=== PATIENT | female | born 1990 | race Hispanic/Latino ===

== ENCOUNTER 2018-12-11 19:18 | Emergency (ER) | payer OTHER ==
[2018-12-11 20:14] LABS: Absolute Lymphocytes (CBC) 2.6 K/uL (0.7-4.9); Absolute Monocytes 0.7 K/uL (0.1-1.3); Absolute Neutrophil 4.9 K/uL (1.8-8.0); Basophils % 0.8 % (0-1.3); Eosinophils % 1.1 % (0-4.4); Hematocrit 41.2 % (36.0-45.0); Lymphocytes % 31.4 % (15.3-44.8); Monocytes % 7.9 % (3.3-12.3); RBC Red Blood Cell Count 4.75 M/uL (3.86-4.86)
[2018-12-11 20:39] LABS: ALT/SGPT 40 U/L (12-78); AST/SGOT 26 U/L (15-37); Albumin 3.9 g/dL (3.4-5.0); Alkaline Phosphatase 78 U/L (45-117); BUN Blood Urea Nitrogen 12 mg/dL (7-18); Bicarbonate 28 mmol/L (21-32); Bilirubin Direct < 0.1 mg/dL (0-0.2); Bilirubin Total 0.2 mg/dL (0.2-1.0); Glucose Level 98 mg/dL (74-106); Lipase 145 U/L (73-393); Potassium 3.6 mmol/L (3.5-5.1); Protein, Total 8.2 g/dL (6.4-8.2); Sodium Level 141 mmol/L (136-145)
[2018-12-11 20:43] LABS: Urine Blood TRACE (NEG); Urine Glucose NEGATIVE (NEG); Urine Protein TRACE (NEG); Urine pH 7.5 (5.0-7.0)
[2018-12-11 20:44] LABS: Urine Bacteria 20-50 /HPF (<20); Urine RBC NONE SEEN /HPF (NONE SEEN)
[2018-12-11 20:45] LABS: Urine Culture Reflex Order REFLEXED
--- NOTE | 2018-12-11 23:48 | EDPHYS ---
Physician Documentation [facility] Name: Leigh Rodriguez Age: 28 yrs Sex: Female : 1990 Arrival Date: 12/11/2018 Time: 19:20 Bed 7 Private MD: ED Physician Jose Alexandre HPI: 12/11 23:08 This 28 yrs old Female presents to ER via Ambulatory with complaints of gs Abdominal Pain. 23:08 The patient presents with blood discharge from umbilicus. Onset: The symptoms/episode gs began/occurred acutely. Associated signs and symptoms: Pertinent negatives: nausea and vomiting, fever. The symptoms are described as sharp. Severity of pain: At its worst the pain was moderate in the emergency department the pain is unchanged. The patient has not experienced similar symptoms in the past. 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 - Social history:: Smoking status: Patient/guardian denies using tobacco. - Ebola Screening: : Patient denies travel to an Ebola-affected area in the 21 days before illness onset. ROS: 23:08 All other systems are negative. gs Exam: 23:08 Head/Face: Normocephalic, atraumatic. Eyes: Pupils equal round and reactive to light, gs extra-ocular motions intact. Lids and lashes normal. Conjunctiva and sclera are non-icteric and not injected. Cornea within normal limits. Periorbital areas with no swelling, redness, or edema. ENT: Nares patent. No nasal discharge, no septal abnormalities noted. Tympanic membranes are normal and external auditory canals are clear. Oropharynx with no redness, swelling, or masses, exudates, or evidence of obstruction, uvula midline. Mucous membranes moist. Neck: Trachea midline, no thyromegaly or masses palpated, and no cervical lymphadenopathy. Supple, full range of motion without nuchal rigidity, or vertebral point tenderness. No Meningismus. Chest/axilla: Normal chest wall appearance and motion. Nontender with no deformity. No lesions are appreciated. Cardiovascular: Regular rate and rhythm with a normal S1 and S2. No gallops, murmurs, or rubs. Normal PMI, no JVD. No pulse deficits. Respiratory: Lungs have equal breath sounds bilaterally, clear to auscultation and percussion. No rales, rhonchi or wheezes noted. No increased work of breathing, no retractions or nasal flaring. Back: No spinal tenderness. No costovertebral tenderness. Full range of motion. Skin: Warm, dry with normal turgor. Normal color with no rashes, no lesions, and no evidence of cellulitis. MS/ Extremity: Pulses equal, no cyanosis. Neurovascular intact. Full, normal range of motion. Neuro: Awake and alert, GCS 15, oriented to person, place, time, and situation. Cranial nerves II-XII grossly intact. Motor strength 5/5 in all extremities. Sensory grossly intact. Cerebellar exam normal. Normal gait. 23:08 Constitutional: The patient appears alert, awake. 23:08 Abdomen/GI: Inspection: Palpation: soft, in all quadrants, nontender, in all quadrants, bloody drainage from umbilicus, tender umbilicus ild erythema. Vital Signs: 19:50 BP 119 / 79; Pulse 67; Resp 16; Temp 98.0(O); Pulse Ox 98% on R/A; Weight 90.72 kg (R); aj1 Height 5 ft. 5 in. (165.10 cm) (R); Pain 0/10; 20:58 BP 105 / 62; Pulse 67; Resp 16; Temp 98; Pulse Ox 99% on R/A; ak1 22:00 BP 106 / 70; Pulse 62; Resp 14; Temp 98.1(O); Pulse Ox 99% on R/A; ak1 12/12 00:00 BP 120 / 53; Pulse 74; Resp 16; Pulse Ox 100% on R/A; lp1 12/11 19:50 Body Mass Index 33.28 (90.72 kg, 165.10 cm) aj1 MDM: 12/11 19:48 Patient medically screened. gs 23:08 Differential diagnosis: urachal remnant, abscess, cyst, cellulitis. Response to gs treatment: the patient's symptoms have mildly improved after treatment, and as a result, I will discharge patient. Physician consultation: spoke to jorje and clover galo will see in office thursday. 12/11 19:49 Order name: Basic Metabolic Panel; Complete Time: 22:55 12/11 19:49 Order name: CBC with Diff; Complete Time: 22:55 12/11 19:49 Order name: Hepatic Function; Complete Time: 22:55 12/11 19:49 Order name: Lipase; Complete Time: 22:55 12/11 19:49 Order name: Urine Microscopic Only; Complete Time: 22:55 12/11 20:01 Order name: Urine Dipstick--Ancillary (enter results); Complete Time: 22:55 cm6 12/11 19:49 Order name: IV Saline Lock; Complete Time: 20:05 12/11 19:49 Order name: Labs collected and sent; Complete Time: 20:05 12/11 19:49 Order name: Urine Test (obtain specimen); Complete Time: 20:05 12/11 19:49 Order name: Urine Dipstick-Ancillary (obtain specimen); Complete Time: 19:53 12/11 19:49 Order name: CT Abd/Pelvis - W/Contrast 12/11 20:01 Order name: Urine --Ancillary (enter results); Complete Time: 22:55 cm6 12/11 20:46 Order name: Urine Culture EDMS Administered Medications: 12/12 00:02 Drug: Doxycycline 100 mg Route: PO; lp1 00:09 Follow up: Response: Medication administered at discharge. lp1 Disposition: 12/11/18 23:48 Discharged to Home. Impression: Cellulitis of umbilicus. - Condition is Stable. - Discharge Instructions: Cellulitis, Adult. - Prescriptions for Bactroban 2 % Topical Ointment - Apply to affected area 1 application by TOPICAL route every 12 hours; 15 gram. Doxycycline Monohydrate 100 mg Oral Tablet - take 1 tablet by ORAL route every 12 hours for 10 days; 20 tablet. - Work release form, Medication Reconciliation Form, Thank You Letter, Antibiotic Education, Prescription Opioid Use form. - Follow up: Private Physician; When: 2 - 3 days; Reason: Re-evaluation by your physician. Signatures: Dispatcher [facility] Emilie Sood RN RN aj1 Mari Parsons RN RN lp1 Jose Alexandre MD MD Corrections: (The following items were deleted from the chart) 00:12 12/11 23:48 12/11/2018 23:48 Discharged to Home. Impression: Cellulitis of umbilicus. lp1 Condition is Stable. Forms are Medication Reconciliation Form, Thank You Letter, Antibiotic Education, Prescription Opioid Use. Follow up: Private Physician; When: 2 - 3 days; Reason: Re-evaluation by your physician. gs
--- NOTE | 2018-12-11 23:48 | ER ---
Nurse's Notes [facility] Name: Leigh Rodriguez Age: 28 yrs Sex: Female : 1990 Arrival Date: 12/11/2018 Time: 19:20 Bed 7 Private MD: Diagnosis: Cellulitis of umbilicus Presentation: 12/11 19:49 Presenting complaint: Patient states: She has had pain to the umbilical area for the aj1 past week and then yesterday she noticed white and bloody drainage from her bellybutton. Denies N/V/D. Denies fever. Transition of care: patient was not received from another setting of care. Onset of symptoms was December 10, 2018. Risk Assessment: Do you want to hurt yourself or someone else? Patient reports no desire to harm self or others. Initial Sepsis Screen: Does the patient meet any 2 criteria? No. Patient's initial sepsis screen is negative. Does the patient have a suspected source of infection? Yes: Acute abdominal pain. Care prior to arrival: None. 19:49 Method Of Arrival: Ambulatory aj1 19:49 Acuity: ISAURA 3 aj1 Triage Assessment: 19:50 General: Appears in no apparent distress. uncomfortable, Behavior is calm, cooperative, aj1 appropriate for age. Pain: Complains of pain in umbilical area Pain does not radiate. Pain currently is 0 out of 10 on a pain scale. at worst was 10 out of 10 on a pain scale. Neuro: Level of Consciousness is awake, alert, obeys commands, Oriented to person, place, time, situation. Cardiovascular: Patient's skin is warm and dry. Respiratory: Airway is patent Respiratory effort is even, unlabored, Respiratory pattern is regular, symmetrical. GI: Abdomen is non-distended, Patient currently denies diarrhea, nausea, vomiting. 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 - Social history:: Smoking status: Patient/guardian denies using tobacco. - Ebola Screening: : Patient denies travel to an Ebola-affected area in the 21 days before illness onset. Screenin:04 Abuse screen: Denies threats or abuse. Denies injuries from another. Nutritional ak1 screening: No deficits noted. Tuberculosis screening: No symptoms or risk factors identified. Fall Risk None identified. Assessment: 20:02 General: Appears in no apparent distress. Behavior is calm, cooperative. Pain: ak1 Complains of pain in abdomen and umbilical area. Neuro: No deficits noted. Cardiovascular: No deficits noted. Respiratory: No deficits noted. GI: Abdomen is drainage and blood from "bellybutton" X2 days Bowel sounds present X 4 quads. Abd is soft and non tender X 4 quads. : No signs and/or symptoms were reported regarding the genitourinary system. EENT: No signs and/or symptoms were reported regarding the EENT system. Derm: No signs and/or symptoms reported regarding the dermatologic system. Musculoskeletal: No signs and/or symptoms reported regarding the musculoskeletal system. 20:59 Reassessment: Patient appears in no apparent distress at this time. No changes from ak1 previously documented assessment. Patient and/or family updated on plan of care and expected duration. Pain level reassessed. Patient is alert, oriented x 3, equal unlabored respirations, skin warm/dry/pink. pt updated on wait after drinking oral contrast for CT scan. 22:26 Reassessment: Patient appears in no apparent distress at this time. No changes from ak1 previously documented assessment. Patient and/or family updated on plan of care and expected duration. Pain level reassessed. Patient is alert, oriented x 3, equal unlabored respirations, skin warm/dry/pink. 12/12 00:00 Reassessment: Patient appears in no apparent distress at this time. Patient is alert, lp1 oriented x 3, equal unlabored respirations, skin warm/dry/pink. Patient demonstrates understanding of results from Provider. Vital Signs: 12/11 19:50 BP 119 / 79; Pulse 67; Resp 16; Temp 98.0(O); Pulse Ox 98% on R/A; Weight 90.72 kg (R); aj1 Height 5 ft. 5 in. (165.10 cm) (R); Pain 0/10; 20:58 BP 105 / 62; Pulse 67; Resp 16; Temp 98; Pulse Ox 99% on R/A; ak1 22:00 BP 106 / 70; Pulse 62; Resp 14; Temp 98.1(O); Pulse Ox 99% on R/A; ak1 12/12 00:00 BP 120 / 53; Pulse 74; Resp 16; Pulse Ox 100% on R/A; lp1 12/11 19:50 Body Mass Index 33.28 (90.72 kg, 165.10 cm) aj1 ED Course: 12/11 19:20 Patient arrived in ED. as 19:30 Jose Alexandre MD is Attending Physician. gs 19:46 Ghada Farr, RN is Primary Nurse. ak1 19:50 Triage completed. aj1 19:50 Arm band placed on Patient placed in an exam room. aj1 20:01 Initial lab(s) drawn, by me, sent to lab. Urine collected: clean catch specimen, ak1 cloudy. Inserted saline lock: 20 gauge in right antecubital area, using aseptic technique. Blood collected. 20:04 Patient has correct armband on for positive identification. Placed in gown. Bed in low ak1 position. Call light in reach. Side rails up X 1. Adult w/ patient. Pulse ox on. NIBP on. 20:23 CT notified pt finished oral contrast. ak1 21:56 CT Abd/Pelvis - W/Contrast In Process Unspecified. EDMS 12/12 00:04 No provider procedures requiring assistance completed. IV discontinued, No lp1 redness/swelling at site. Pressure dressing applied. Administered Medications: 00:02 Drug: Doxycycline 100 mg Route: PO; lp1 00:09 Follow up: Response: Medication administered at discharge. lp1 Outcome: 12/11 23:48 Discharge ordered by . 12/12 00:08 Discharged to home ambulatory, with family. lp1 Condition: good Discharge instructions given to patient, Instructed on discharge instructions, follow up and referral plans. medication usage, Demonstrated understanding of instructions, follow-up care, medications, Prescriptions given X 2. 00:12 Patient left the ED. lp1 Signatures: Dispatcher [employer] [facility] Emilie Sood RN RN aj1 Kianna Reynolds Laura, RN RN lp1 Ghada Farr, CORDELIA STOREY ak1 Jose Alexandre MD MD
[2018-12-12] MEDS ORDERED: DOXYCYCLINE 100 MG CAP PO ONE (00:11)
[2018-12-12 01:56] VITALS: TEMP 98.1
[2018-12-12 01:58] VITALS: BP 120/53; O2SAT 100
--- NOTE | 2018-12-13 13:49 | RAD REPORT ---
EXAM DESCRIPTION: CT Abdomen and Pelvis With Intravenous Contrast CLINICAL HISTORY: The patient is 28 years old and is Female; ABD PAIN TECHNIQUE: Axial computed tomography images of the abdomen and pelvis with intravenous contrast. S agittal and coronal reformatted images were created and reviewed. This CT exam was performed using one or more of the following dose reduction techniques: automated exposure control, adjustment of t he mA and/or kV according to patient size, and/or use of iterative reconstruction technique. COMPARISON: None. FINDINGS: LUNG BASES: Unremarkable. No mass. No consolidation. ABDOMEN: LIVER: Unremarkable. No mass. GALLBLADDER AND BILE DUCTS: Unremarkable. No calcified stones. No ductal dilation. PANCREAS: Unremarkable. No mass. No ductal dilation. SPLEEN: Unremarkable. No splenomegaly. ADRENALS: Unremarkable. No mass. KIDNEYS AND URETERS: Unremarkable. No solid mass. No hydronephrosis. STOMACH AND BOWEL: Containing contrast is seen in the small bowel and proximal large bowel. Minima l fecal distention of the rectum measuring 5.5 cm No mucosal thickening. PELVIS: APPENDIX: The appendix is seen and is within normal limits BLADDER: Unremarkable. No mass. REPRODUCTIVE: 3.9 cm right ovarian cyst. 2.9 cm left ovarian cyst. Small amount of endometrial flu id. ABDOMEN and PELVIS: INTRAPERITONEAL SPACE: Unremarkable. No free air. No significant fluid collection. BONES/JOINTS: No acute fracture. No dislocation. SOFT TISSUES: Unremarkable. VASCULATURE: Unremarkable. No abdominal aortic aneurysm. LYMPH NODES: Unremarkable. No enlarged lymph nodes. IMPRESSION: 1. No acute abdominal or pelvic abnormality. 2. Incompletely characterized physiologic pelvic changes with bilateral ovarian cyst measuring up t o 3.9 cm on the right. Electronically signed by: Nitin Ramsey DO 12/11/2018 10:30 PM CDT Due to temporary technical issues with the PACS/Fluency reporting system, reports are being signed by the in house radiologist as a courtesy to ensure prompt reporting. The interpreting radiologist is darcy devriesly responsible for the content of the report.
== END 2018-12-12 00:12 | disposition home or self-care (01) ==
LOC: ER 19:18
DX: L03.316 Cellulitis of umbilicus (principal)
CPT/HCPCS: 36415; 74177; 80048; 80076; 81003; 81015; 81025; 83690; 85025; 87086; 87088; 99284; Q9967

== ENCOUNTER 2018-12-15 12:34 | Day surgery (SDC) | payer OTHER ==
--- OUTSIDE RECORDS SUMMARY | 2018-12-15 12:37 | XMS REPORT ---
:1990 [facility] Address [address] [place] [address] Dr. Denney [address] [place] [id number] Care Team Providers Name Role Phone Unavailable Unavailable Unavailable Problems This patient has no known problems. Allergies, Adverse Reactions, Alerts This patient has no known allergies or adverse reactions. Medications This patient has no known medications.
[2018-12-15] MEDS ORDERED: FENTANYL CITR 100 MCG/2 ML ONE (13:04)
[2018-12-15] MEDS ORDERED: MIDAZOLAM HCL 2 MG/2 ML INJ ONE ×2 (13:04→13:23)
[2018-12-15] MEDS ORDERED: LIDOCAINE 1% MPF 5 ML VIAL ONE (13:04)
[2018-12-15] MEDS ORDERED: PROPOFOL 200 MG/20 ML VIAL IV ONE (13:04)
[2018-12-15 13:09] LABS: Absolute Lymphocytes (CBC) 2.4 K/uL (0.7-4.9); Absolute Monocytes 0.5 K/uL (0.1-1.3); Absolute Neutrophil 4.9 K/uL (1.8-8.0); Basophils % 0.6 % (0-1.3); Eosinophils % 1.1 % (0-4.4); Hematocrit 42.7 % (36.0-45.0); Lymphocytes % 30.2 % (15.3-44.8); MPV 9.3 fL (7.6-11.3); Monocytes % 6.7 % (3.3-12.3)
[2018-12-15] MEDS ORDERED: Ringers Lactate 1,000 ML IV ONE (13:09)
[2018-12-15] MEDS ORDERED: CEFAZOLIN/SWI 1gm 1 GM/10 ML SYR ONE (13:13)
[2018-12-15 13:27] LABS: BUN Blood Urea Nitrogen 9 mg/dL (7-18); Bicarbonate 26 mmol/L (21-32); Glucose Level 85 mg/dL (74-106); Potassium 3.7 mmol/L (3.5-5.1); Sodium Level 141 mmol/L (136-145)
[2018-12-15] MEDS ORDERED: ONDANSETRON 4 MG/2 ML VIAL ONE (14:11)
[2018-12-15] MEDS ORDERED: BUPIVACAINE 0.5% PF 10 ML VIAL ONE (14:23)
--- NOTE | 2018-12-15 14:48 | P.BOP ---
Preoperative diagnosis: Periumbilical mass with bleeding Postoperative diagnosis: umbilical hernia plus deep seated infected umbilical mass Primary procedure: 1. Open repair of tender umbilical hernia Secondary procedure: 2. Excisional biopsy of infected umbilical mass Estimated blood loss: <10cc Specimen: hernia sac, umbilical mass Findings: see dictation Anesthesia: General Complications: None Transferred to: Recovery Room Condition: Good
[2018-12-15] MEDS: MORPHINE 4 MG/ML SYR ONE ×4 (14:59→15:18)
[2018-12-15] MEDS ORDERED: CODEINE 30MG/APAP 300MG TAB ONE (16:07)
[2018-12-15 16:52] VITALS: BP 134/81; TEMP 98; O2SAT 96
--- NOTE | 2018-12-16 01:38 | OP ---
Date of Procedure: 12/15/2018 Surgeon: Micheal Reynolds MD Preoperative Diagnosis: Periumbilical mass with bleeding, tenderness, possible hernia. Preoperative Diagnosis: Tender umbilical hernia and deep seated infected umbilical mass. Procedures: 1.Open repair of tender umbilical hernia. 2.Excisional biopsy of infected umbilical mass, subcutaneous. Specimen: Hernia sac, umbilical mass. Anesthesia: General plus local. Findings: Patient has umbilical hernia with a cystic mass with ulceration present with yellowish, pr obably solid, purulent discharge in that region; etiology of that is unknown. The hernia is right ne xt to it. I did not see the pus coming inside the hernia needed to be repaired. The hernia content with its fatty content is pushing on this mass causing compression of it, primarily that caused a rup ture of the mass with ulceration that lead into bleeding and also an infection. Indication: This is a case of a 28-year-old patient who comes to us after having an umbilical mass i n her belly, bleeding, putting pus outside, very tender to the point she came to the ER. She was sen t to the office for evaluation, found to have umbilical mass. It is so tender I cannot rule out wily ia or not, but the mass is infected and needs to be addressed. She understands we might have to isabelle ve the mass, we might have to fix the hernia, we might have to do both, but obviously it is so tender that it has to be done under anesthesia, even the mass exploration. The benefits, alternatives, and risks of excisional biopsy of mass plus an umbilical hernia repair were fully explained to the patie nt which include but are not limited to infection, bleeding, damage to adjacent structures, anesthesi a complication, recurrence, PA, and even . She also understands she may require wound care and she signed a consent. She understands the chance of recurrence. Description Of Procedure: The patient was brought to the operating room, placed in supine position. Anesthesia was done without complication. Abdominal area was prepped and draped in a sterile fashio n. We have a mass deep inside, seated deep at the base of this right now. She has small belly butto n, so it is hard to just identify the etiology of that. Once we went to that area and we removed olive t mass, it exposed some of the skin of the belly button. We did see that leading to an umbilical her margoth. Umbilical hernia had some incarcerated fatty tissue coming through. Apparently, the hernia tis julia press on this mass. The mass got to enlarge, eventually ruptured the skin, necrotized the skin, and then after that a bacteria went in and caused all this problem. So, we are in a situation of rem oving the subcutaneous mass and also at the same time the hernias there and I cannot leave that open to the abdomen since this is partially connected to it. We did not see any fistula or any inflammati on of umbilicus at least obviously. So, we irrigated the area, cleaned the fascia edges, closed that with #1 Vicryl interrupted [id number]. Irrigated the subcutaneous tissue and the hernia region after removing the mass. It had some yellowish discharge in that area. Patient claims there was pu s coming from that area before. I cannot rule out sebaceous content mixed with pus. Anyway that was cleaned and removed. Because of the way this is and in the conditions we are, I believe it is sensa te to close the skin completely, so we let this to close by secondary intention, approximating deep s ubcutaneous tissue but leaving the skin to close and the subcutaneous tissue to close by secondary in tention with packing in that area. The patient tolerated the procedure well. The patient was sent t o recovery in stable condition. DON Voice ID: [id number] Report ID: [id number]
--- NOTE | 2018-12-16 01:44 | DS ---
Date of Discharge: 12/15/2018 Diagnosis: Umbilical hernia with umbilical bleeding with mass. Procedures: Open repair of a tender umbilical hernia with excisional biopsy of infected bleeding umb ilical mass. Disposition: Home. Activity: As tolerated. No heavy lifting. Followup: Follow up in my office in 1 week; call for appointment on [phone]. Medications: Include Bactrim DS p.o. b.i.d., Tylenol No. 3 q.4 hours p.r.n. pain. Patient should be packing the area with Nu gauze quarter of an inch, with Bactroban daily. ANASTACIO/ZULMA Voice ID: [id number] Report ID: [id number]
== END 2018-12-15 16:50 | disposition home or self-care (01) ==
LOC: OR 12:34
PROVIDERS: ATTEND Surgery
PROC: 0WQF0ZZ Repair Abdominal Wall, Open Approach (ICD-10-PCS; principal; 2018-12-15 14:15)
PROC: 0JB80ZX Excision of Abdomen Subcutaneous Tissue and Fascia, Open Approach, Diagnostic (ICD-10-PCS; 2018-12-15 14:15)
DX: K42.9 Umbilical hernia without obstruction or gangrene (principal); L03.316 Cellulitis of umbilicus; L90.5 Scar conditions and fibrosis of skin
CPT/HCPCS: 36415; 80048; 81025; 85025; 88302; 88305; J0690; J2250; J2405; J2704; J3010

== ENCOUNTER 2020-07-29 12:31 | Emergency (ER) | payer OTHER ==
--- OUTSIDE RECORDS SUMMARY | 2020-07-29 12:34 | XMS REPORT | Summary of Care ---
:1990 Author Organization [facility] - [facility] Address [address] [place] [id number] Care Team Providers Name Role Phone Amy Garcia Primary Care Provider Reason for Visit Reason Comments Cough Other COVID swab Auth/Cert Status Reason Specialty Diagnoses / Referred By Referred To Procedures Contact Contact Emergency Medicine [facility] Em ergency Dept [address] [place] [address] Fax: Encounter Details Date Type Department Care Team Description 07/11/2020 Emergency ADC-Emergency Pagan, Kaila R, Exposure t o COVID-19 virus (Primary Dx); Department EMNP Cough [address] [facility] [address] [place] [address] [id number] [place], [place] [id number] Allergies No Known Allergiesdocumented as of this encounter (statuses as of 07/11/2020) Medications Medication Sig Dispensed Refills Start Date End Date Status cyclobenzaprine 5 mg Take 1 tablet by 20 tablet 0 01/29/2018 Active tablet mouth 3 (three) times daily. predniSONE 20 mg Take three 25 tablet 0 09/01/2018 A ctive tabletIndications: tablets by mouth Bronchitis for 5 days, then two tablets by mouth for 5 days codeine-guaifenesin Take 10 mL by 100 mL 0 09/01/2018 Active 10-100 mg/5 mL mouth every 6 solutionIndications: (six) hours as Bronchitis needed for Cough. benzonatate 100 mg Take 1 capsule 20 capsule 0 02/20/2020 Active capsuleIndications: by mouth 3 COVID-19 virus (three) times infection daily as needed for Cough. albuterol 90 Inhale 2 Puffs 8.5 g 0 02/20/2020 A ctive mcg/actuation every 4 (four) inhalerIndications: hours as needed COVID-19 virus for Wheezing or infection Shortness of Breath. 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 SPECIAL INSTRUCTIONS: 1. These symptoms may last for several days 2. May take tylenol and motrin for headache/sore throat/low grade fever 3. Warm salt water gargles for sore throat 4. Recommend taking allergy medicine of choice such as claritin, zyrtec or bianca 5. Sinus rinses as tolerated 6. Increase fluid intake 7. May use flonase as directed, now available over the counter 8. May take mucinex DM as directed 9. Wash hands well 10. See attached information Recommended optional medications available over the counter for prevention/worsening of covid 1. Vitamin C 500mg twice daily 2. Zinc 75-100mg/day (acetate, gluconate or picolinate). After 1 month reduce to 30-50mg/day 3. Melatonin (slow release) Begin with 0.3mg and increase as tolerated to 2mg at night 4. Vitamin D3 1000-4000u/day 5. Famotidine (pepcid) 20-40mg/day FOLLOW-UP RECOMMENDATIONS: RECOMMEND FOLLOW-UP WITH A PRIMARY CARE PROVIDER OR SPECIALIST IN 2-5 DAYS, ESPECIALLY IF NO IMPROVEMENT IN SYMPTOMS. TO FOLLOW-UP WITHIN THE [facility], TRY THESE OPTIONS (CLINIC APPOINTMENTS AVAILABLE ON [id number] BASIS): 1. SCHEDULE AN APPOINTMENT ONLINE AT WWW[facility] 2. OR CALL THE [facility] ACCESS C[facility] AT OR 3. OR CALL YOUR [facility] PHYSICIAN'S OFFICE DIRECTLY IF YOU ARE ALREADY AN ESTABLISHED [facility] PATIENT. OR, YOU MAY FOLLOW-UP WITH A PROVIDER OF YOUR CHOICE, SUCH : 1. A PHYSICIAN OF YOUR CHOICE 2. [facility], . LOCATIONS IN [facility] 3. [facility], [address] [place] [address]; [phone] RETURN TO ER FOR WORSENING OF SYMPTOMS. AttachmentsThe following attachments cannot be sent through Care Everywhere. Coronavirus Disease 2019 (COVID-19)- Overview (Portuguese)Coronavirus Disease 2019 (COVID-19), Prevention (Portuguese)documented in this encounter ED Notes Laura Escalante RN - 07/11/2020 3:26 PM CSTPatient ambulatory to triage with c/o of cough, vomiting,congeston, and fatigue on Thursday. Patientreports that she tested positive for COVID19 on 02/19. Patient reports that her work partner has now tested positive and she may have gotten reinfected from him. 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 Instructions given verbalized understanding. 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 Name Type Priority Associated Diagnoses Order S chedule LAB ONLY COVID LAB Routine Cough ONCE for 1 Oc currences INTERPRETATION starting 12/2019 until 0 Health Maintenance Due Date Last Done Comments VARICELLA VACCINES (1 of 2 - 1989 2-dose childhood series) Depression Screening 2000 DTaP,Tdap,and Td Vaccines (1 2007 - Tdap) PAP SMEAR 05/27/2014 05/27/2011, 05/21/2009 INFLUENZA VACCINE (#1) 2020 PNEUMOCOCCAL 0-64 YEARS Aged Out No longe r eligible based COMBINED SERIES on patient's age to complete this to pic documented as of this encounter Procedures Procedure Name Priority Date/Time Associated Diagnosis Comme nts COVID-19 (ID NOW STAT 07/11/2020 3:34 PM Cough Resu lts for this RAPID TESTING) 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 It is used under Emergency Use Authorization (EUA) by FDA. The limit of detection (LOD) of the assay is 125 Genome Equivalents/mL. A positive result is indicative of the presence of SARS-CoV-2 RNA. Clinical correlation with patient history and other diagnostic information is necessary to determine patient infection status. A negative (Not Detected) result does not preclude SARS-CoV-2 infection. In patients with clinical symptoms and other tests that are consistent with SARS-CoV-2 infection, negative results should be treated as presumptive negative and a new specimen should be tested with alternative PCR molecular test. Invalid: Please collect a new specimen for repeat patient testing if clinically indicated. 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
--- OUTSIDE RECORDS SUMMARY | 2020-07-29 12:34 | XMS REPORT | Summary of Care ---
:1990 Author Organization [facility] - Health Address [address] [place] [address] Care Team Providers Name Role Phone Amy Garcia Primary Care Provider Encounter Details Date Type Department Care Team Description 07/11/2020 Orders Only [facility] Doctor Unassigned, No 301 [facility] Name [place] [id number] [address] [place] [phone] Allergies No Known Allergiesdocumented as of this [...] Assigned at Date Recorded Not on file documented as of this encounter Last Filed Vital Signs Not on filedocumented in this encounter Plan of Treatment Health Maintenance Due Date Last Done Comments VARICELLA VACCINES (1 of 2 - 1989 2-dose childhood series) Depression Screening 2000 DTaP,Tdap,and Td Vaccines (1 2007 - Tdap) PAP SMEAR 05/27/2014 05/27/2011, 05/21/2009 INFLUENZA VACCINE (#1) 2020 PNEUMOCOCCAL 0-64 YEARS Aged Out No longe r eligible based COMBINED SERIES on patient's age to complete this to [facility] documented as of this encounter Procedures Procedure Name Priority Date/Time Associated Diagnosis Comme nts CONSENT/REFUSAL FOR Routine 07/11/2020 3:18 PM 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
--- OUTSIDE RECORDS SUMMARY | 2020-07-29 12:35 | XMS REPORT | Continuity of Care Document ---
:1990 Author Organization [facility] t Address [address] [place] [address] Care Team Providers Name Role Phone Kaila Serrano Attending Clinician Doctor Unassigned, Name Attending Clinician Unavailable Lab, Fam Pob I Attending Clinician Unavailable Florecita Ruby Attending Clinician Payers Payer Name Policy Type Policy Number Effective Date Expiration Date S ource Problems This patient has no known problems. Allergies, Adverse Reactions, Alerts Allergy Allergy Status Severity Reaction(s) Onset Inactive Treating Comm ents Source Name Type Date Date Clinician No Known DA Active U 2019-09 [facility] Allergie 09-16 Clear s 00:00: [place] 00 [facility] Medications This patient has no known medications. Procedures This patient has no known procedures. Encounters Start End Encounter Admission Attending Care Care Encounter Source Date/Time Date/Time Type Type Clinicians Facility Department ID 2020-07-11 2020-07-11 Emergency DIPAK Pagan [id number] 15:42:00 16:15:00 Kaila Galloway [id number] [place] [id number] [place] [id number] 2020-07-11 2020-07-11 Orders Doctor OLGA [id number] 00:00:00 00:00:00 Only Unassigned, [place] [id number] [place] [address]686 [id number] 2020-03-14 2020-03-14 Laboratory Lab, [facility] [id number] 11:30:38 11:50:38 Only Fam Pob I Health [id number] [place] [id number] [facility] [phone] [address]al [address] 2020-02-20 2020-02-20 Emergency Aleksandr, Chiqui [facility] [id number] 17:27:49 19:43:00 Florecitalibby Galloway [id number] [place] [id number] [place] [id number] 2020-02-20 2020-02-20 Orders Doctor OLGA [id number] 00:00:00 00:00:00 Only Unassigned, SHELBY [id number] [place] [id number] [id number] Results Test Description Test Time Test Comments Results Result Comments Source BASIC METABOLIC PANEL 2020-07-17 17:20:00 Test Item Value Reference Range Interpretation Comme nts SODIUM (test code = NA) 139 mEq/L 134-147 N POTASSIUM (test code = K) 3.7 mEq/L 3.4-5.0 N CHLORIDE (test code = CL) 109 mEq/L 100-108 H CARBON DIOXIDE (test code = CO2) 24 mEq/L 21-33 N ANION GAP (test code = GAP) 9 0-20 N GLUCOSE (test code = GLU) 88 mg/dL 70-110 N BLOOD UREA NITROGEN (test code = 19 mg/dL 7-18 H BUN) GLOMERULAR FILTRATION RATE (test 83.1 105-110 L Units of measure = ml/min/1.73 code = GFR) m2 CREATININE (test code = CREAT) 0.8 mg/dL 0.6-1.3 N CALCIUM (test code = CA) 8.3 mg/dL 8.0-10.5 N HEPATIC FUNCTION [id number] 17:20:00 Test Item Value Reference Range Interpretation Comments TOTAL PROTEIN (test code = PROT) 7.1 g/dL 6.4-8.2 N ALBUMIN (test code = ALB) 3.60 g/dL 3.4-5.0 N BILIRUBIN TOTAL (test code = 0.30 mg/dL 0.0-1.0 N BILT) BILIRUBIN DIRECT (test code = < 0.10 MG/DL 0.0-0.30 N BILD) BILIRUBIN INDIRECT (test code = 0.20 MG/DL BILIND) SGOT/AST (test code = AST) 58 IUnit/L 15-37 H SGPT/ALT (test code = ALT) 69 IUnit/L 30-65 H ALKALINE PHOSPHATASE TOTAL (test 61 IUnit/L 20-125 N code = ALKP) TSH REFLEX TO [id number] 17:20:00 Test Item Value Reference Range Interpretation Comments TSH REFLEX TO FT4 (test code = 1.46 IU/mL 0.42-5.47 N TSHREFLEX) [id number] 17:20:00 Test Item Value Reference Range Interpretation Comments TROPONIN-I < 0.006 ng/mL 0.000-0.045 N Negative: <= (test code = 0.045 Positive: TROPI) >= 0.046 Correl ation with serial results, other cardiac markers andclinical findings is nec essary to determine the clinicalsignifi cance of this result. Results using different metho dologies should not be c omparedto one another as ming titative results may raul y by method. [id number] 17:20:00 Test Item Value Reference Range Interpretation Comments ALCOHOL (test code 5.2 mg/dL <10 N Ethyl Alc ohol = ALC) Interpretation: 100 mg/dL - Legally Intoxicated 300-400 mg/dL - Severely Intoxicated >400 mg/dL - Po tentially LethalThe pharm acological response to blo od alcohol levels mayvary from individual to i ndividual. Signs of intoxi cationcan be observed at levels of 50-100 mg/dL. R esults are for Medical pur poses only, and not for Leg al orEmployment ev aluation purposes. CBC W/O [id number] 17:03:00 Test Item Value Reference Range Interpretation Comments WHITE BLOOD CELL (test code = 11.0 x10 3/uL 4.5-11.0 N WBC) RED BLOOD CELL (test code = 4.32 x10 6/uL 3.54-5.02 N RBC) HEMOGLOBIN (test code = HGB) 12.8 g/dL 11.0-15.0 N HEMATOCRIT (test code = HCT) 39.8 % 33.0-45.0 N MEAN CELL VOLUME (test code = 92.1 fL 81.0-99.0 N MCV) MEAN CELL HGB (test code = MCH) 29.6 pg 27.0-33.0 N MEAN CELL HGB CONCETRATION 32.2 g/dL 33.0-37.0 L (test code = MCHC) RED CELL DISTRIBUTION WIDTH CV 12.8 % 11.5-14.5 N (test code = RDW) RED CELL DISTRIBUTION WIDTH SD 42.6 fL 37.0-54.0 N (test code = RDW-SD) PLATELET COUNT (test code = 292 x10 3/uL 150-400 N PLT) MEAN PLATELET VOLUME (test code 10.8 fL 7.0-9.0 H = MPV) CBC W/O [id number] 17:00:00 Test Item Value Reference Range Interpretation Comments WHITE BLOOD CELL (test code = x10 3/uL 4.5-11.0 WBC) RED BLOOD CELL (test code = RBC) x10 6/uL 3.54-5.02 HEMOGLOBIN (test code = HGB) 12.8 g/dL 11.0-15.0 N HEMATOCRIT (test code = HCT) 39.8 % 33.0-45.0 N MEAN CELL VOLUME (test code = fL 81.0-99.0 MCV) MEAN CELL HGB (test code = MCH) pg 27.0-33.0 MEAN CELL HGB CONCETRATION (test g/dL 33.0-37.0 code = MCHC) RED CELL DISTRIBUTION WIDTH CV % 11.5-14.5 (test code = RDW) PLATELET COUNT (test code = PLT) 292 x10 3/uL 150-400 N
[2020-07-29] MEDS ORDERED: LORAZEPAM 1 MG TABLET ONE (13:05)
--- NOTE | 2020-07-29 13:32 | EDPHYS ---
Physician Documentation [facility] Name: Leigh Rodriguez Age: 30 yrs Sex: Female : 1990 Arrival Date: 07/29/2020 Time: 12:33 Bed 4 Private MD: ED Physician Denys Zacarias HPI: 07/29 13:06 This 30 yrs old Female presents to ER via Ambulatory with complaints of rn Doesn't Feel Right. 13:06 This 30 yrs old Female presents to ER via Ambulatory with complaints of rn Doesn't Feel Right, anxious. 13:06 Reports at work today, no specific trigger but feeling very anxious, normally takes 1mg rn ativan PO when it gets like this, reports happens "often", and this is identical to previous episodes of anxiety. Denies recent illness/trauma/chest pain/cough/abd pain/diarrhea/vomiting. . Onset: The symptoms/episode began/occurred just prior to arrival. Severity of symptoms: At their worst the symptoms were moderate in the emergency department the symptoms are unchanged. The patient has experienced similar episodes in the past. The patient has not recently seen a physician. 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 - Social history:: Smoking status: Patient denies any tobacco usage or history of. - Hospitalizations: : No recent hospitalization is reported. ROS: 13:06 Constitutional: Negative for fever, chills, and weight loss, Eyes: Negative for injury, rn pain, redness, and discharge, Neck: Negative for injury, pain, and swelling, Cardiovascular: Negative for chest pain, and edema, Respiratory: Negative for cough, wheezing, and pleuritic chest pain, Abdomen/GI: Negative for abdominal pain, nausea, vomiting, diarrhea, and constipation, Back: Negative for injury and pain, : Negative for injury, bleeding, discharge, and swelling, MS/Extremity: Negative for injury and deformity, Skin: Negative for injury, rash, and discoloration, Neuro: Negative for headache, weakness, and seizure. Exam: 13:06 Constitutional: This is a well developed, well nourished patient who is awake, alert, rn appears anxious, a little uncooperative with exam and answering questions, doing slow breathing Head/Face: Normocephalic, atraumatic. Eyes: Periorbital areas with no swelling, redness, or edema. Cardiovascular: Regular rate and rhythm. No pulse deficits. Respiratory: No increased work of breathing, no retractions or nasal flaring. Skin: Warm, dry MS/ Extremity: Pulses equal, no cyanosis. Neuro: Awake and alert, GCS 15, oriented to person, place, time, and situation. Vital Signs: 12:44 BP 101 / 69; Pulse 97; Resp 20; Temp 98.6(O); Pulse Ox 98% on R/A; Weight 90.72 kg; vg1 Height 5 ft. 6 in. (167.64 cm); 13:00 BP 109 / 70; Pulse 80; Resp 16; Pulse Ox 98% on R/A; vg1 13:30 BP 107 / 63; Pulse 83; Resp 16; Pulse Ox 96% on R/A; vg1 12:44 Body Mass Index 32.28 (90.72 kg, 167.64 cm) vg1 MDM: 12:40 Patient medically screened. rn 13:31 Differential Diagnosis anxiety, panic attack, stress-induced episode. Data reviewed: rn vital signs, nurses notes, and as a result, I will discharge patient. Counseling: I had a detailed discussion with the patient and/or guardian regarding: the historical points, exam findings, and any diagnostic results supporting the discharge/admit diagnosis, the need for outpatient follow up, to return to the emergency department if symptoms worsen or persist or if there are any questions or concerns that arise at home. Response to treatment: the patient's symptoms have mildly improved after treatment, and as a result, I will discharge patient. Special discussion: I discussed with the patient/guardian in detail that at this point there is no indication for admission to the hospital. It is understood, however, that if the symptoms persist or worsen the patient needs to return immediately for re-evaluation. 07/29 12:46 Order name: PO challenge; Complete Time: 12:49 rn Administered Medications: 12:53 Drug: Ativan 2 mg Route: PO; vg1 13:28 Follow up: Response: Anxiety decreased vg1 Disposition: 07/29/20 13:31 Discharged to Home. Impression: Anxiety disorder, unspecified. - Condition is Stable. - Discharge Instructions: Panic Attacks, Generalized Anxiety Disorder. - Medication Reconciliation Form, Thank You Letter, Antibiotic Education, Prescription Opioid Use form. - Follow up: Private Physician; When: As needed; Reason: Recheck today's complaints, Re-evaluation by your physician. - Problem is an acute exacerbation. - Symptoms have improved. Signatures: Denys Zacarias MD MD rn Garcia, Victoria, RN RN vg1 Corrections: (The following items were deleted from the chart) 13:46 13:31 07/29/2020 13:31 Discharged to Home. Impression: Anxiety disorder, unspecified. vg1 Condition is Stable. Forms are Medication Reconciliation Form, Thank You Letter, Antibiotic Education, Prescription Opioid Use. Follow up: Private Physician; When: As needed; Reason: Recheck today's complaints, Re-evaluation by your physician. Problem is an acute exacerbation. Symptoms have improved. rn
--- NOTE | 2020-07-29 13:32 | ER ---
Nurse's Notes [facility] Name: Leigh Rodriguez Age: 30 yrs Sex: Female : 1990 Arrival Date: 07/29/2020 Time: 12:33 Bed 4 Private MD: Diagnosis: Anxiety disorder, unspecified Presentation: 07/29 12:44 Chief complaint: Patient states: anxiety. Coronavirus screen: Client denies travel out [facility] of the [place] in the last 14 days. Ebola Screen: Patient negative for fever greater than or equal to 101.5 degrees Fahrenheit, and additional compatible Ebola Virus Disease symptoms. Initial Sepsis Screen: Does the patient meet any 2 criteria? No. Patient's initial sepsis screen is negative. Does the patient have a suspected source of infection? No. Patient's initial sepsis screen is negative. Risk Assessment: Do you want to hurt yourself or someone else? Patient reports no desire to harm self or others. Onset of symptoms was July 29, 2020. 12:44 Method Of Arrival: Ambulatory 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 - Social history:: Smoking status: Patient denies any tobacco usage or history of. - Hospitalizations: : No recent hospitalization is reported. Screenin:40 Abuse screen: Denies threats or abuse. Nutritional screening: No deficits noted. vg1 Tuberculosis screening: No symptoms or risk factors identified. Fall Risk No fall in past 12 months (0 pts). No secondary diagnosis (0 pts). No IV (0 pts). Ambulatory Aid- None/Bed Rest/Nurse Assist (0 pts). Gait- Normal/Bed Rest/Wheelchair (0 pts) Mental Status- Oriented to own ability (0 pts). Total Tracey Fall Scale indicates No Risk (0-24 pts). Assessment: 12:40 General: Appears uncomfortable, Behavior is anxious. Pain: Denies pain. Neuro: Level of vg1 Consciousness is awake, alert, obeys commands, Oriented to person, place, time, situation. Cardiovascular: Patient's skin is warm and dry. Respiratory: Airway is patent is compromised Respiratory effort is even, unlabored, Respiratory pattern is regular, symmetrical. GI: No signs and/or symptoms were reported involving the gastrointestinal system. : No signs and/or symptoms were reported regarding the genitourinary system. EENT: No signs and/or symptoms were reported regarding the EENT system. Derm: Skin is pink, warm \T\ dry. Musculoskeletal: Range of motion: intact in all extremities. 13:29 Reassessment: Patient appears in no apparent distress at this time. Patient and/or vg1 family updated on plan of care and expected duration. Pain level reassessed. Patient is alert, oriented x 3, equal unlabored respirations, skin warm/dry/pink. Patient states feeling better. Vital Signs: 12:44 BP 101 / 69; Pulse 97; Resp 20; Temp 98.6(O); Pulse Ox 98% on R/A; Weight 90.72 kg; vg1 Height 5 ft. 6 in. (167.64 cm); 13:00 BP 109 / 70; Pulse 80; Resp 16; Pulse Ox 98% on R/A; vg1 13:30 BP 107 / 63; Pulse 83; Resp 16; Pulse Ox 96% on R/A; vg1 12:44 Body Mass Index 32.28 (90.72 kg, 167.64 cm) vg1 ED Course: 12:33 Patient arrived in ED. mr 12:36 Haydee Munroe RN is Primary Nurse. vg1 12:40 Denys Zacarias MD is Attending Physician. rn 12:40 Patient has correct armband on for positive identification. Bed in low position. Call vg1 light in reach. Pulse ox on. NIBP on. 12:42 Arm band placed on right wrist. vg1 12:46 Triage completed. vg1 13:44 No provider procedures requiring assistance completed. Patient did not have IV access vg1 during this emergency room visit. Administered Medications: 12:53 Drug: Ativan 2 mg Route: PO; vg1 13:28 Follow up: Response: Anxiety decreased vg1 Outcome: 13:31 Discharge ordered by . rn 13:44 Discharged to home vg1 13:44 Condition: stable 13:44 Discharge instructions given to patient, Instructed on discharge instructions, follow up and referral plans. Demonstrated understanding of instructions, follow-up care. 13:46 Patient left the ED. vg1 Signatures: Ethel Caba mr Denys Zacarias MD MD rn Garcia, Victoria, RN RN vg1 Corrections: (The following items were deleted from the chart) 12:47 12:44 BP 101 / 69; Pulse 97bpm; Resp 20bpm; Pulse Ox 98% RA; Temp 98.6F Oral; vg1 vg1
[2020-07-29 17:42] VITALS: TEMP 98.6
[2020-07-29 17:45] VITALS: BP 107/63; O2SAT 96
== END 2020-07-29 13:46 | disposition home or self-care (01) ==
LOC: ER 12:31
DX: F41.9 Anxiety disorder, unspecified (principal)
CPT/HCPCS: 99283